=== PATIENT | female | born 1955 | race Caucasian/White ===

== ENCOUNTER 2018-08-03 21:23 | Emergency (ER) | payer SELFPAY ==
[~2018-08-03] VITALS: Ht 157.5 cm; Wt 52.2 kg
--- OUTSIDE RECORDS SUMMARY | 2018-08-03 21:26 | XMS REPORT | Clinical Summary ---
Author Author [facility] Organization [facility] Address Unknown Phone Unavailable Care Team Providers Care Etymology Professor Name Role Phone Tolu Powell MD PCP Allergies No Known Allergies Medications End Date Status Medication Sig Dispensed Refills Start Date Active albuterol 90 Inhale 2 6.7 g 5 mcg/actuation Puffs by 9 inhalerIndications: mouth 4 times Chronic obstructive daily as pulmonary disease, needed for unspecified COPD type Wheezing or Shortness of Breath. Active fluticasone-salmeterol Inhale 1 Puff 60 Each 5 (ADVAIR DISKUS) 250-50 by mouth 2 9 mcg/dose diskus times daily. inhalerIndications: Chronic obstructive pulmonary disease, unspecified COPD type Active omeprazole (PRILOSEC) 20 Take 1 30 capsule 2 mg delayed release capsule by 9 capsuleIndications: mouth daily. Gastroesophageal reflux disease without esophagitis Status Hospital, Clinic, or Ordered Dose Route Frequency Start End Date Other Facility Date Administered Medication Active albuterol (PROVENTIL) 2.5 2.5 mg IN PRN 05/01/19 mg /3 mL (0.083 %) 19 9 nebulized solution 2.5 mgIndications: Chronic obstructive pulmonary disease, unspecified COPD type Active Problems No known active problems Encounters Care Team Description Date Type Specialty Erlinda Harding Colon Cancer Screening (Education on FIT completion) 06/13/2018 Telephone Gastroenterology Vanesa Black NP 04/30/2018 Ancillary Radiology Procedure Vanesa Black NP Preventative health care (Primary Dx); Screening for breast cancer; Screen for colon cancer; Need for bcyxtuhlop-wftymhs-ddxekoajy (Tdap) vaccine; Chronic obstructive pulmonary disease, unspecified COPD type; Dental caries; Wears glasses; Pain in both knees, unspecified chronicity; Screening for osteoporosis; Gastroesophageal reflux disease without esophagitis 04/30/2018 Office Visit Family Practice 04/30/2018 Travel after 08/02/2017 Immunizations Name Administration Dates Next Due Tdap (Tetanus Toxoid, 04/30/2018 (Deferred: Patient Refused) Reduced Diphtheria Toxoid And Acellular Pertussis, Absorbed) Family History Relation Name Status Comments Father Mother Sister Alive Social History Date Tobacco Use Types Packs/Day Years Used Former Smoker Smokeless Tobacco: Never Used Tobacco Cessation: Counseling Given: No Drinks/Week oz/Week Comments Alcohol Use Not Currently Food Insecurity Answer Date Recorded Within the past 12 months, you worried that your Sometimes true 04/30/2018 food would run out before you got money to buy more. Within the past 12 months, the food you bought Sometimes true 04/30/2018 just didn't last and you didn't have money to get more. Sex Assigned at Date Recorded Not on file Industry Job Start Date Occupation Not on file Not on file Not on file Travel End Travel History Travel Start No recent travel history available. Last Filed Vital Signs Reading Time Taken Comments Vital Sign 138/80 04/30/2018 10:06 AM CDT Blood Pressure 57 04/30/2018 10:06 AM CDT Pulse 36.6 C (97.9 F) 04/30/2018 10:06 AM CDT Temperature 18 04/30/2018 10:06 AM CDT Respiratory Rate - - Oxygen Saturation - - Inhaled Oxygen Concentration 51.7 kg (114 lb) 04/30/2018 10:06 AM CDT Weight 157.5 cm (5' 2") 04/30/2018 10:06 AM CDT Height 20.85 04/30/2018 10:06 AM CDT Body Mass Index Plan of Treatment Health Maintenance Due Date Last Done Comments Cervical Cancer Scrn (3 1974 Yrs) Breast Cancer Scrn 1993 (Yearly) Colorectal Cancer Scrn 11/10/2003 Annual (FIT/FOBT) Age 50 to 75 IMM Influenza Seasonal 11/05/2018 Oct to April (>/=19 yrs) Procedures Comments Procedure Name Priority Date/Time Associated Diagnosis XRAY CHEST 2 VIEWS Routine 04/30/2018 Chronic obstructive 11:57 AM CDT pulmonary disease, unspecified COPD type HCV RNA QUANT, PCR Routine 04/30/2018 10:39 AM CDT THYROID STIMULATING Routine 04/30/2018 Preventative health care HORMONE (TSH) 10:39 AM CDT LIVER PROFILE Routine 04/30/2018 Preventative health care 10:39 AM CDT LIPID PROFILE Routine 04/30/2018 Preventative health care 10:39 AM CDT HIV-1/HIV-2 ROUTINE Routine 04/30/2018 Preventative health care SCREENING 10:39 AM CDT HEPATITIS PANEL Routine 04/30/2018 Preventative health care 10:39 AM CDT HEMOGLOBIN A1C Routine 04/30/2018 Preventative health care 10:39 AM CDT CBC/DIFF Routine 04/30/2018 Preventative health care 10:39 AM CDT BASIC METABOLIC PANEL Routine 04/30/2018 Preventative health care 10:39 AM CDT after 08/02/2017 Results * XRAY CHEST 2 VIEWS (04/30/2018 11:57 AM CDT) Specimen Impressions Performed At IMPRESSION: SMS 1.Radiographic, excessive COPD, including lung hyperinflation, emphysematous changes, and bronchitis. 2.Bibasilar parenchymal scarring. 3.Sequela of prior granulomatous disease. Dictated By: Bill Blair MD, 04/30/2018 3:14 PM I have reviewed the study and agree with the findings in this report. Signed By: Caroline Najera MD, 05/01/2018 10:37 AM Narrative Performed At EXAMINATION:XRAY CHEST 2 VIEWS SMS INDICATION: COPD COMPARISON:None FINDINGS: TUBES and LINES:None. LUNGS:Lungs are hyperinflated.Few a scattered bilateral upper lobe tiny calcified granulomas and pleuroparenchymal scarring suggestive of prior TB. Emphysematous changes. Bibasilar reticular opacities bronchiectasis.. There is no evidence of pneumonia or pulmonary edema. PLEURA:No pleural effusion or pneumothorax. HEART AND MEDIASTINUM:The cardiomediastinal silhouette is unremarkable. BONES AND SOFT TISSUES:No acute osseous lesion. Degenerative changes in thoracic spine, including anterior bridging ossified ptosis. Soft tissues are unremarkable. UPPER ABDOMEN: No free air under the diaphragm. Procedure Note Interface, Rad/Mammog In - 05/01/2018 10:43 AM CDT EXAMINATION: XRAY CHEST 2 VIEWS INDICATION: COPD COMPARISON: None FINDINGS: TUBES and LINES: None. LUNGS: Lungs are hyperinflated. Few a scattered bilateral upper lobe tiny calcified granulomas and pleuroparenchymal scarring suggestive of prior TB. Emphysematous changes. Bibasilar reticular opacities bronchiectasis.. There is no evidence of pneumonia or pulmonary edema. PLEURA: No pleural effusion or pneumothorax. HEART AND MEDIASTINUM: The cardiomediastinal silhouette is unremarkable. BONES AND SOFT TISSUES: No acute osseous lesion. Degenerative changes in thoracic spine, including anterior bridging ossified ptosis. Soft tissues are unremarkable. UPPER ABDOMEN: No free air under the diaphragm. IMPRESSION IMPRESSION: 1. Radiographic, excessive COPD, including lung hyperinflation, emphysematous changes, and bronchitis. 2. Bibasilar parenchymal scarring. 3. Sequela of prior granulomatous disease. Dictated By: Bill Blair MD, 04/30/2018 3:14 PM I have reviewed the study and agree with the findings in this report. Signed By: Caroline Najera MD, 05/01/2018 10:37 AM Performing Organization Address City/[facility]/Zipcode Phone Number SMS * HIV-1/HIV-2 ROUTINE SCREENING (04/30/2018 10:39 AM CDT) HIV-1/HIV-2 Negative NEG BT MAIN-STATION 4 Specimen Performing Organization Address [facility] Phone Number [facility] BT MAIN-STATION 4 * HEMOGLOBIN A1C (04/30/2018 10:39 AM CDT) Hemoglobin A1c 5.5 4.3 - 6.1 % BT DIAGNOSTIC IMMUNOLOGY Est Average 111.2 mg/dL BT DIAGNOSTIC Gluc IMMUNOLOGY Specimen Blood Performing Organization Address [facility] Phone Number [facility] BT DIAGNOSTIC IMMUNOLOGY * HCV RNA QUANT, PCR (04/30/2018 10:39 AM CDT) HCV RNA QUANT, Not detected IU/mL BT MOLECULAR PCR Comment: PATHOLOGY This test utilizes FDA cleared JOCELYNE AmpliPrep/JOCELYNE TaqMan HCV test, v2.0 from [facility] which allows detection of viral loads between 15 copies/mL and 100,000,000 of plasma. When the result is less than 15 copies/mL of HCV RNA is obtained, the test will be reported as less than 15 copies/mL. JOCELYNE AmpliPrep/JOCELYNE TaqMan HCV test, v2.0 is NOT intended for use as a screening test for the presence of HCV RNA in blood or as a diagnostic test to confirm the presence of HCV infection. This test is intended for use as an aid in the management of patients with HCV infection. Specimen Performing Organization Address [facility] Phone Number [facility] MOLECULAR PATHOLOGY * TSH (04/30/2018 10:39 AM CDT) TSH 1.58 0.57 - 3.74 uIU/mL BT MAIN-STATION 1 Specimen Blood Performing Organization Address [facility] Phone Number [facility] MAIN-STATION 1 * LIVER PROFILE (04/30/2018 10:39 AM CDT) Protein, Total, 6.9 6.0 - 8.3 g/dL BT MAIN-STATION Serum 1 Albumin 4.2 3.7 - 5.3 g/dL BT MAIN-STATION 1 Bilirubin, 0.6 0.2 - 1.2 mg/dL BT MAIN-STATION Total 1 Alkaline 42 34 - 104 U/L BT MAIN-STATION Phosphatase, S 1 AST (SGOT) 12 (L) 13 - 39 U/L BT MAIN-STATION 1 ALT 7 7 - 52 U/L BT MAIN-STATION 1 D Bilirubin 0.1 0.0 - 0.2 mg/dL BT MAIN-STATION 1 Specimen Blood Performing Organization Address [facility] Phone Number [facility] MAIN-STATION 1 * LIPID PROFILE (04/30/2018 10:39 AM CDT) Cholesterol 154 mg/dL BT MAIN-STATION Comment: 1 REFERENCE RANGE: Desirable: <200 mg/dL Borderline: 200-240 mg/dL High Risk: >240 mg/dL Triglyceride 62 <150 mg/dL BT MAIN-STATION Comment: 1 REFERENCE RANGE: Normal: <150 mg/dL Borderline High: 150-199 mg/dL High: 200-499 mg/dL Very High: >mt=650 mg/dL HDL 73 mg/dL BT MAIN-STATION Comment: 1 Increased CHD risk: <40 mg/dL Decreased CHD risk: >60 mg/dL LDL 69 mg/dL BT MAIN-STATION Comment: 1 REFERENCE RANGE: Optimal: <100 mg/dL Near Optimal: 100-129 mg/dL Borderline High: 130-159 mg/dL High: 160-189 mg/dL Very High: >ru=220 mg/dL Specimen Blood Performing Organization Address City/State/Zipcode Phone Number [facility]IS[facility] BT MAIN-STATION 1 * HEPATITIS PANEL (04/30/2018 10:39 AM CDT) HCV IgG Positive (A) NEG BT MAIN-STATION 4 HBsAg Negative NEG BT MAIN-STATION 4 HAV, IgM Negative NEG BT MAIN-STATION 4 HBcAb, IgM Negative NEG BT MAIN-STATION 4 Specimen Blood Performing Organization Address [facility] Phone Number [facility] BT MAIN-STATION 4 * CBC/DIFF (04/30/2018 10:39 AM CDT) Pathologist [facility] WBC 5.0 4.5 - 11.0 K/uL BT MAIN-STATION 2 RBC 4.51 4.20 - 5.40 M/uL BT MAIN-STATION 2 Hemoglobin 12.5 12.0 - 16.0 g/dL BT MAIN-STATION 2 Hematocrit 39.9 37.0 - 47.0 % BT MAIN-STATION 2 MCV 89 82 - 92 fL BT MAIN-STATION 2 MCH 27.7 27.0 - 32.0 pg BT MAIN-STATION 2 MCHC 31.3 (L) 32.0 - 36.0 g/dL BT MAIN-STATION 2 RDW 43.8 36.4 - 46.3 fL BT MAIN-STATION 2 Platelets 267 150 - 400 K/uL BT MAIN-STATION 2 Mean Platelet 11.2 9.4 - 12.4 fL BT MAIN-STATION Volume 2 Percent NRBC 0.0 BT MAIN-STATION 2 Absolute NRBC 0.00 BT MAIN-STATION 2 Neutrophils 53.8 34.0 - 70.0 % BT MAIN-STATION 2 Lymphs 35.8 20.0 - 50.0 % BT MAIN-STATION 2 Monocytes 7.6 5.0 - 12.0 % BT MAIN-STATION 2 Eos 1.8 0.7 - 5.0 % BT MAIN-STATION 2 Basos 0.8 0.1 - 1.2 % BT MAIN-STATION 2 Immature 0.2 0.0 - 0.5 BT MAIN-STATION Granulocytes 2 Neutrophils 2.69 1.56 - 6.13 K/uL BT MAIN-STATION (Absolute) 2 Lymphs 1.79 1.18 - 3.74 K/uL BT MAIN-STATION (Absolute) 2 Monocytes(Absol 0.38 (H) 0.24 - 0.36 K/uL BT MAIN-STATION moapa) 2 Eos (Absolute) 0.09 0.04 - 0.36 K/uL BT MAIN-STATION 2 Baso (Absolute) 0.04 0.01 - 0.08 K/uL BT MAIN-STATION 2 Immature Grans 0.01 0.00 - 0.03 K/uL BT MAIN-STATION (Abs) 2 Specimen Blood Performing Organization Address City/State/Zipcode Phone Number MISYS BT MAIN-STATION 2 * BASIC METABOLIC PANEL (04/30/2018 10:39 AM CDT) [facility] CO2 27 21 - 31 mmol/L BT MAIN-STATION 1 Chloride 104 98 - 107 mmol/L BT MAIN-STATION 1 Potassium 4.9 3.5 - 5.1 mmol/L BT MAIN-STATION 1 Sodium 140 136 - 145 mmol/L BT MAIN-STATION 1 Glucose 93 70 - 110 mg/dL BT MAIN-STATION 1 BUN 17 7 - 25 mg/dL BT MAIN-STATION 1 Creatinine 0.80 0.6 - 1.2 mg/dL BT MAIN-STATION 1 Anion Gap 9 BT MAIN-STATION 1 Calcium 9.7 8.6 - 10.3 mg/dL BT MAIN-STATION 1 GFR, Estimated >60 mL/min/1.73 m2 BT MAIN-STATION 1 eGFR If Africn >60 mL/min/1.73 m2 BT MAIN-STATION Am 1 Specimen Blood Performing Organization Address City/State/Zipcode Phone Number MISYS BT MAIN-STATION 1 after 08/02/2017 Insurance Type Payer Benefit Subscriber ID Effective Phone Address Plan / Dates Group [employer] xxxxxxx 2018- [phone] [address] [employer] [id number] [place], [place] [address] [employer]AN [employer] PLAN xxxxxxx 2018-2 [address] [place] [address]
--- OUTSIDE RECORDS SUMMARY | 2018-08-03 21:26 | XMS REPORT ---
[facility] Address Unknown Phone Unavailable Care Team Providers Care Harness Tier Name Role Phone Unavailable Unavailable Problems This patient has no known problems. Allergies, Adverse Reactions, Alerts This patient has no known allergies or adverse reactions. Medications This patient has no known medications. Encounters Start Date/Time End Date/Time Encounter Type Admission Type Attending [facility] Care Department Encounter ID 2018-07-29 00:00:00 2018-07-29 00:00:00 Outpatient [facility] [id number] 2018-07-26 00:00:00 2018-07-26 00:00:00 Outpatient [facility] [id number] 2018-07-26 00:00:00 2018-07-26 00:00:00 Outpatient [facility] [id number] 2018-06-14 00:00:00 2018-06-14 00:00:00 Outpatient [facility] [id number] 2018-06-12 00:00:00 2018-06-12 00:00:00 Outpatient [facility] [id number] 2018-06-06 00:00:00 2018-06-06 00:00:00 Outpatient [facility] [id number] 2018-05-27 00:00:00 2018-05-27 00:00:00 Outpatient [facility] [id number] 2018-05-07 00:00:00 2018-05-07 00:00:00 Outpatient [facility] [id number] 2018-05-02 00:00:00 2018-05-02 00:00:00 Outpatient [facility] [id number] 2018-04-30 11:30:50 2018-04-30 11:30:50 Outpatient [facility] [id number] 2018-04-30 10:43:47 2018-04-30 10:43:47 Outpatient [facility] [id number] 2018-04-30 10:04:08 2018-04-30 10:04:08 Outpatient [facility] [id number]
[2018-08-03] MEDS ORDERED: LORAZEPAM 1 MG TAB ONE (21:52)
[2018-08-03] MEDS ORDERED: LORAZEPAM 1 MG TAB PO ONE (22:00)
--- NOTE | 2018-08-03 22:50 | NUR ---
PT DC'D HOME WITH SIG OTHER, AWAKE ALERT SKIN W/D RESP NONLAB. NAD NOTED. PT STATES SHE FEELS BETTER AT TIME OF DISCHARGE
== END 2018-08-03 22:50 | disposition home or self-care (01) ==
LOC: ER 21:23
DX: F41.1 Generalized anxiety disorder (principal)
CPT/HCPCS: 93005; 99283

== ENCOUNTER 2019-08-12 10:39 | Emergency (ER) | payer MEDICARE, OTHER ==
[~2019-08-12] VITALS: Ht 157.5 cm; Wt 52.2 kg
--- NOTE | 2019-08-12 11:56 | Emergency Department Note ---
History of Present Illnes History of Present Illness Chief Complaint: General Medicine Complaints History of Present Illness This is a 63 year old female . Historian: Patient Arrival Mode: Car Forest Ecologist Required: No Onset (how long ago): day(s) Location: left lower back Radiation: Reports extremity Severity: moderate Onset quality: gradual Duration (how long): day(s) (3) Timing of current episode: constant Progression: worsening Chronicity: recurrent Relieving factors: none Exacerbating factors: none Treatments prior to arrival: none Previous service: tests performed Past Medical/Family History Physician Review I have reviewed the patient's past medical and family history. Any updates have been documented here. Past Medical History Recent Fever: No Clinical Suspicion of Infectio: No New/Unexplained Change in Ment: No Past Medical History: Hypertension, COPD Past Surgical History: Cholecysctectomy, Other Surgery: FOOT Social History Smoking Cessation: Former smoker Alcohol Use: Social Any Illegal Drug Use: No TB Exposure/Symptoms: No Physically hurt or threatened: No Family History Family history of heart diseas: No Other Any Pre-Existing Lines (PICC,: No Is patient up to date on immun: Yes Review of Systems ROS Narrative Patient is a 63 year old female that presents with left lower back pain that R/T left posterior mid thigh. Patient states she was seen yesterday at [facility] for same and had CT, CBC, cardiac enzymes,UA,EKG and CXR that was all normal. All results copied and placed with paper chart. Review of Systems Constitutional: Reports no symptoms EENTM: Reports no symptoms Cardiovascular: Reports no symptoms Respiratory: Reports no symptoms Gastrointestinal: Reports no symptoms Genitourinary: Reports no symptoms Musculoskeletal: Reports muscle pain Integumentary: Reports no symptoms Neurological: Reports no symptoms Psychological: Reports no symptoms Endocrine: Reports no symptoms Hematological/Lymphatic: Reports no symptoms Physical Exam Related Data Allergies: Coded Allergies: codeine (Verified Adverse Reaction, Mild, NAUSEA, 08/03/18) Triage Vital Signs Vital Signs Date Time Temp Pulse Resp B/P (MAP) Pulse Ox O2 Delivery O2 Flow Rate FiO2 08/12/19 11:34 99.1 72 18 161/83 100 Room Air Vital signs reviewed: Yes Physical Exam CONSTITUTIONAL Constitutional: Present well-developed HENT HENT: Present normocephalic EYES Eyes: Reports PERRL NECK Neck: Present ROM normal PULMONARY Pulmonary: Present effort normal, Present breath sounds normal CARDIOVASCULAR Cardiovascular: Present regular rhythm; Absent LLE edema, Absent RLE edema GASTROINTESTINAL Abdominal: Present soft, Present nontender GENITOURINARY SKIN Skin: Present warm, Present dry, Present erythema MUSCULOSKELETAL Musculoskeletal: Present tenderness (left SI joint pain that r/t mid thigh) NEUROLOGICAL PSYCHOLOGICAL Psychological: Present mood/affect normal Assessment & Plan Medical Decision Making MDM No homans , no cords, No SOB, weakness or dizziness. Sciatic nerve pain, medications given RX and DC home Reassessment Reassessment time: 11:54 Assessment & Plan Final Impression: (1) Sciatic leg pain Depart Disposition: HOME, SELF-CARE Last Vital Signs Date Time Temp Pulse Resp B/P (MAP) Pulse Ox O2 Delivery O2 Flow Rate FiO2 08/12/19 11:34 99.1 72 18 161/83 100 Room Air BRITTANY HURLEY Aug 12, 2019 11:56
== END 2019-08-12 13:44 | disposition home or self-care (01) ==
LOC: ER 13:43
DX: M54.42 Lumbago with sciatica, left side (principal); M54.41 Lumbago with sciatica, right side; I10 Essential (primary) hypertension; J44.9 Chronic obstructive pulmonary disease, unspecified; Z87.891 Personal history of nicotine dependence
CPT/HCPCS: 99282

== ENCOUNTER → 2019-11-28 | Outpatient (CLI) | payer MEDICARE, OTHER | LOC: RAD 13:46 | PROVIDERS: ATTEND Student in an Organized Health Care Education/Training Program | DX: M13.0 Polyarthritis, unspecified (principal); M70.62 Trochanteric bursitis, left hip; M25.561 Pain in right knee; M25.562 Pain in left knee; M79.671 Pain in right foot; M79.672 Pain in left foot ==